=== PATIENT | male | born 1945 | race Caucasian/White ===

== ENCOUNTER 2020-11-06 09:42 | Outpatient (REF) | payer MEDICARE, BC, SELFPAY ==
--- NOTE | ~2020-11-06 | CT_ITS ---
EXAMINATION: CT SINUS WITHOUT CONTRAST CLINICAL INFORMATION: Nasal polyps. COMPARISON: None TECHNIQUE: Axial 1.5 mm thin and reformatted 2 mm thin sagittal coronal images of sinuses were obtained without contrast. This CT examination was performed using dose optimization techniques as appropriate, variously including the following: *Automated exposure control *Adjustment of mA and/or kV according to patient size (this includes techniques or standardized protocols for targeted exams where dose is matched to indication/reason for exam; i.e. extremities or head) *Use of iterative reconstruction technique DLP: 124 mGy-cm FINDINGS: There is mild mucoperiosteal thickening bilateral maxillary frontal, ethmoid sinuses. Bilateral sphenoid sinuses are well-aerated and clear. There is mucoperiosteal thickening bilateral ostiomeatal complex with partial obstruction. There is mild mucosal thickening bilateral frontoethmoidal recesses as well. There is a depressed right inferior orbital floor likely old injury. NASAL CAVITY/NASOPHARYNX: The nasal cavity is clear. There is no nasal septal deviation/spurring. There is mild fátima bullosa bilateral middle turbinates. There is mild mucosal thickening along the right nasal cavity. Otherwise the nasal cavity airway is patent. ADDITIONAL RELEVANT FINDINGS: No periapical disease is seen. The TMJs articulate normally. The skull base soft tissues are unremarkable. There is a depressed old fracture right inferior orbit floor. Otherwise the rest of the right orbit and the left orbit appear unremarkable. The middle ear cavities and mastoid air cells are clear. Limited evaluation demonstrates no acute intracranial findings. CT/CT sinus wo con IMPRESSION: 1. Diffuse bilateral maxillary sinus inflammatory changes appearing in the sphenoid sinuses. 2. Partially obstructed bilateral frontoethmoidal recess and ostial meatal complex cyst from mucosal thickening. 3. Small right nasal cavity mucosal thickening likely polyps with fátima bullosa bilateral middle turbinates. 4. There is an old fracture right inferior orbital wall.
== END 2020-11-06 09:43 | disposition home or self-care (01) ==
LOC: HO.CT 09:42
PROVIDERS: Visit Provider Otolaryngology
DX: J33.8 Other polyp of sinus (principal)
CPT/HCPCS: 70486